=== PATIENT | female | born 1990 | race Caucasian/White ===

== ENCOUNTER 2018-09-03 16:11 | Emergency (ER) | payer OTHER, BC ==
[~2018-09-03] VITALS: Ht 167.6 cm; Wt 81.6 kg
[2018-09-03 16:18] VITALS: BP 140/61
[2018-09-03] MEDS ORDERED: KETOROLAC TROMETH 60MG/2ML VIAL IM ONE (17:15)
== END 2018-09-03 17:51 | disposition home or self-care (01) ==
LOC: ER 16:20
DX: M65.4 Radial styloid tenosynovitis [de Quervain] (principal)
CPT/HCPCS: 73110; 81025; 96372; 99283; J1885